=== PATIENT | female | born 1980 | race Two or more races ===

== ENCOUNTER 2018-03-30 00:49 | Emergency (ER) | payer OTHER ==
[~2018-03-30] VITALS: Ht 170.2 cm; Wt 75.7 kg
[2018-03-30 00:55] VITALS: BP 132/99
[2018-03-30] MEDS ORDERED: TDAP [DIPH/PERTUSSIS/TET] 0.5 ML VIAL IM ONE ×2 (01:30)
[2018-03-30] MEDS ORDERED: LIDOCAINE HCL/PF 1% 30 ML VIAL TP ONE (01:30)
[2018-03-30] MEDS ORDERED: LIDOCAINE 0.5% HCL 50 ML VIAL ONE (01:30)
== END 2018-03-30 02:03 | disposition home or self-care (01) ==
LOC: ER 00:52
DX: S61.214A Laceration without foreign body of right ring finger without damage to nail, initial encounter (principal); F41.9 Anxiety disorder, unspecified; Z95.2 Presence of prosthetic heart valve; Z88.5 Allergy status to narcotic agent; W25.XXXA Contact with sharp glass, initial encounter; Y93.89 Activity, other specified; Y92.89 Other specified places as the place of occurrence of the external cause; Y99.8 Other external cause status
CPT/HCPCS: 12001; 90471; 90715; 99283; A4606; J3490 ×2; Z7610